=== PATIENT | female | born 1955 | race Caucasian/White ===

== ENCOUNTER 2017-08-18 10:30 | Outpatient (RCR) | payer OTHER ==
[2014-01-16 11:54] VITALS: BMI 23.3
[~2017-08-18 10:30] MED LIST: ADV500/50 INH; ALB0.5 INH; ALBU8.5H IH; ARMTHY90PT PO; ASPI-692 PO; BUTA1CAP4 PO; CETI-459 PO; CICPT NS; CYCL10TA29 PO; DIPH-740 PO; ESTR1PAT69 TD; FEXO-67 PO; FEXO180T74 PO; FLUT1DIS28 IH; HYDR-3087 PO; HYDR-4305 PO; IBUP800T37 PO; L-NO1TBD6 PO; LOR1 PO; MAGN400C PO; METO-1 PO; OMEP-125 PO; OMEP-218 PO; ONDA4TAB PO; ONDA4TAB97 PO; OXYC-865 PO; PANT20TA27 PO; PANT40SU3 PO; PIR10 PO; PRE1 PO; PRO25 PO; PROM-110 PO; RANI-324 PO; RIZA10TA PO; RIZA10TA20 PO; SUCR1TAB85 PO; THIA250T12 PO; THIA50TA10 PO; THYR120T10 PO; THYR97.55 PO; VALA500T66 PO; VERA120C9 PO; [UNRECOGNIZED DRUG - CODE] MC; [UNRECOGNIZED DRUG - CODE] PO; amoxicillin; biaxin; maxalt; norco
--- NOTE | 2017-08-18 17:41 | PT INITIAL EVALUATION ---
MEDICAL DIAGNOSIS: Right Shoulder Impingement TREATMENT DIAGNOSIS: Right Shoulder Impingement, Subscapularis Tendinopathy DATE OF ONSET: 01/16/17 SUBJECTIVE: oRcky is a pleasant 62 year-old female presenting to physical therapy with a history of right shoulder pain that has been present since Jan, 2017. Pt reports that pain got progressively worse until she was started on steroids for asthma which improved the shoulder pain. Following discontinuing steroids, pt received a steroid injection into the shoulder recently which has also reduced the pain. Currently pain is reported at a 1/10 with a mild ache throughout the R arm. Pt is also tender to palpation on the anterior aspect of the shoulder. Pt reports that throughout this process that she has been using her L arm more frequently, but still has increased pain when she needs to use her R arm for lifting or overhead reaching often in work related activities such as transferring patients. 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 ROM: B Shoulder ROM: IR: L T5, R T9. All other ROM full with R sided pain at end range flexion and painful arc in R side abduction. Strength: Shoulder MMT: L: 5/5 in all major motions, R: flexion: 5/5, abd: 4/5 with pain, Ext: 4+/5 with anterior shoulder pain, ER: 5/5, IR 3+/5 with pain. Palpation: Pt is tender to palpation on distal attachment of subscapularis tendon Special Tests: IR lift off test (-) with pain in R shoulder, Neer's (+) R, Horizontal Adduction (-), Empty can (+) slight pain. ASSESSMENT: Pt shows signs and symptoms consistent with R shoulder impingement with associated subscapularis tendinopathy. Physical therapy is indicated to correct the above listed deficits and return pt to full function with ADL's and work related activities. Short Term Goals In 2 weeks pt will have full AROM of B shoulders without onset of pain for improved function with ADL's and work related activities. In 4 weeks pt will improve functional strength of R shoulder to equal to that of the left for prevention of re-injury and improved function with ADL's. Patient's Goals Decrease pain and improve function. PLAN: Patient to be seen for Manual Therapy/STM/MET Strengthening/condition Ice/Heat Range of Motion Spinal Stabilization Ultrasound Stretching Iontophoresis Neuromuscular Re-ed Electrical Stim Posture/Body mechanics Biofeedback Home Exercise Program Mech./Manual Traction Therapeutic Activities 2x/Week for 4 Weeks PT recommendations for pt frequency are listed above. However, secondary to pt preference with family illness, as well as MD recommendation, pt is to receive only one treatment of PT at this time and follow up with PT if symptoms persist. It is my impression that pt would benefit from 4-6 weeks of therapy 2x/ week for assessment and adequate healing of the subscapularis tendon, neuromuscular reeducation with prolonged scapular-humeral dysfunction resulting in impingement, as well as to increase strength for work related activities for prevention of re-injury. If you have any questions, comments, or concerns about this report or plan, please contact me at . Thank you, Barbara Cisneros, PT, DPT, CLT TOREY
--- NOTE | 2017-09-13 08:45 | PT PLAN OF CARE ---
Physician: Steve Vial MD Patient is being seen: 2x/Week Therapist: Barbara Cisneros, PT, DPT, CLT Medical Diagnosis: Right Shoulder Impingement Treatment Diagnosis: Right Shoulder Impingement, Subscapularis Tendinopathy Date of Onset: 01/16/17 Date of Initial Evaluation: 08/18/17 Date patient was last seen: 08/18/17 Number of treatments: 1 Number of cancellations/No shows: 0 INTERVENTIONS: Manual Therapy/STM/MET Strengthening/condition Ice/Heat Range of Motion Spinal Stabilization Ultrasound Stretching Iontophoresis Neuromuscular Re-ed Electrical Stim Posture/Body mechanics Biofeedback Home Exercise Program Mech./Manual Traction Therapeutic Activities GOALS: In 2 weeks pt will have full AROM of B shoulders without onset of pain for improved function with ADL's and work related activities. In 4 weeks pt will improve functional strength of R shoulder to equal to that of the left for prevention of re-injury and improved function with ADL's. PATIENT'S GOAL: Decrease pain and improve function. Status of Patient's Goals: 0/2 MET Patient Compliance: Good Prognosis: Good Reasons for discharge from therapy: Rocky is to discharge from physical therapy at this time after being seen for only one visit secondary to patient preference and MD recommendation. Upon evaluation pt was given several exercises to correct her chronic impingement syndrome and prefers to progress with these exercises independently. It is my impression that pt would benefit from 4-6 weeks of therapy 2x/week for assessment and adequate healing of the subscapularis tendon, neuromuscular reeducation with prolonged scapular-humeral dysfunction resulting in impingement, as well as to increase strength for work related activities for prevention of re-injury. At the time of discharge pt has met 0/2 functional goals. Posture: Pt has slight elevated R shoulder. ROM: B Shoulder ROM: IR: L T5, R T9. All other ROM full with R sided pain at end range flexion and painful arc in R side abduction. Strength: Shoulder MMT: L: 5/5 in all major motions, R: flexion: 5/5, abd: 4/5 with pain, Ext: 4+/5 with anterior shoulder pain, ER: 5/5, IR 3+/5 with pain. Palpation: Pt is tender to palpation on distal attachment of subscapularis tendon Special Tests: IR lift off test (-) with pain in R shoulder, Neer's (+) R, Horizontal Adduction (-), Empty can (+) slight pain. If you have any questions, comments, or concerns about this report or plan, please contact me at . Thank you, Barbara Cisneros, PT, DPT, CLT JOSUED
== END 2017-08-18 18:00 | disposition home or self-care (01) ==
LOC: PT 10:30
PROVIDERS: ATTEND Orthopaedic Surgery
DX: M75.41 Impingement syndrome of right shoulder (principal); M75.81 Other shoulder lesions, right shoulder; M25.511 Pain in right shoulder
CPT/HCPCS: 97161

== ENCOUNTER → 2017-09-26 | Outpatient (CLI) | payer OTHER ==
[2014-01-16 11:54] VITALS: BMI 23.3
== END ==
LOC: LAB 08:48
PROVIDERS: ATTEND Family Medicine
DX: M79.1 Myalgia (principal); M25.50 Pain in unspecified joint
CPT/HCPCS: 87502

== ENCOUNTER → 2017-09-26 | Outpatient (CLI) | payer OTHER ==
[2014-01-16 11:54] VITALS: BMI 23.3
--- NOTE | 2017-09-26 17:04 | RADIOLOGY IMAGING REPORT ---
FACILITY: [facility] [place] PATIENT NAME: Rocky Pierce : 1955 MR: [id number] V: [id number] EXAM DATE: ORDERING PHYSICIAN: ARTURO ALONSO TECHNOLOGIST: Location: [facility] [place] Patient: Rocky Pierce : 1955 Visit/Account:[id number] Date of Sevice: 09/26/2017 SHOULDER RIGHT W/O CONTRAST HISTORY: Shoulder pain COMPARISON: None TECHNIQUE: Multiplanar/multisequence was obtained through the right shoulder without contrast. Contrast: None FINDINGS: Rotator cuff: Tendinosis with mild partial-thickness intrasubstance tearing of the distal supraspinat us tendon. Cystic change at the infraspinatus humeral engagement without discrete tear. Teres minor t endon is normal. Subscapularis tendon exhibits mild insertional tendinosis. No full-thickness tear of the rotator cuff. No tendinous retraction or muscular atrophy. Subacromial/subdeltoid fluid: Small amount Joint effusion: None significant Biceps tendon: Resides within the bicipital groove and is intact to the labrum without signal abnorma lity. Glenohumeral joint and labrum: No discrete labral tear or paralabral cyst. Articular cartilage is int act. AC joint : Mild proliferative changes. Minimal lateral acromial downsloping. Acromium is type II. Bone marrow: Mild cystic change both anteriorly and posteriorly within the humeral head Soft tissues: Normal Other findings: None significant IMPRESSION: 1. Tendinosis with mild partial-thickness intrasubstance tearing of the distal supraspinatus tendon. No full-thickness tear of the rotator cuff. 2. Mild cystic change anteriorly-posteriorly within the humeral head can be seen with internal imping ement. Report Dictated By: Bunny Brown MD at 09/26/2017 4:56 PM Report E-Signed By: Bunny Brown MD at 09/26/2017 5:00 PM WSN:[id number]
== END ==
LOC: MRI 06:57
PROVIDERS: ATTEND Orthopaedic Surgery
DX: S46.811A Strain of other muscles, fascia and tendons at shoulder and upper arm level, right arm, initial encounter (principal); M75.91 Shoulder lesion, unspecified, right shoulder

== ENCOUNTER → 2018-01-18 | Outpatient (CLI) | payer OTHER ==
[2014-01-16 11:54] VITALS: BMI 23.3
[~2018-01-18] MED LIST changes: -RANI-324 PO; +RANI-366 PO
--- NOTE | 2018-01-19 15:45 | RADIOLOGY IMAGING REPORT ---
FACILITY: [facility] PATIENT NAME: BACILIO DUBON : [id number] MR: [id number] V: [id number] EXAM DATE: ORDERING PHYSICIAN: MADI GARRISON TECHNOLOGIST: Kate Stephen PROCEDURE:BILATERAL DIGITAL SCREENING MAMMOGRAM WITH CAD ASSISTED INTERPRETATION & 3D TOMOSYNTHESIS COMPARISON:Prior mammograms dated 01/02/14, 07/25/12 INDICATIONS:SCREENING FINDINGS: A small amount of fibroglandular tissue is seen throughout the breasts. The parenchymal pattern has remained stable allowing for difference in mammographic technique & patient positioning. There is no evidence of malignant appearing mass, malignant appearing calcification or other secondary sign of malignancy in either breast. DIAGNOSTIC CATEGORY 1--NEGATIVE. RECOMMENDATIONS: ROUTINE MAMMOGRAM AND CLINICAL EVALUATION. IMPRESSION: BIRADS 1: Negative. No significant abnormality is seen. Dictated by: Janeen Gordon M.D. on 01/18/2018 at 14:58 Transcribed by: BLAKE on 01/19/2018 at 8:01 Approved by: Janeen Gordon M.D. on 01/19/2018 at 15:44 [facility]
== END ==
LOC: MAMO 01-11 01:40
PROVIDERS: ATTEND Family Medicine
DX: Z12.31 Encounter for screening mammogram for malignant neoplasm of breast (principal)
CPT/HCPCS: 77063; 77067

== ENCOUNTER 2018-07-14 22:26 | Emergency (ER) | payer OTHER ==
[2014-01-16 11:54] VITALS: BMI 23.3
[~2018-07-14 22:26] MED LIST changes: -HYDR-4305 PO; +HYDR-627 PO
[2018-07-14 22:35] VITALS: BP 132/75
[2018-07-14] MEDS ORDERED: RANI-366 PO (22:47)
[2018-07-14] MEDS ORDERED: AMIT-104 PO (22:47)
[2018-07-14] MEDS ORDERED: DIPH-740 PO (22:47)
[2018-07-14] MEDS ORDERED: PANT40SU3 PO (22:47)
--- NOTE | 2018-07-14 22:52 | ER Report ---
History and Physical Time Seen By MD: 22:49 Hx. of Stated Complaint: PATIENT STATES THAT SHE HAS 2 ROUNDS OF ANTIBIOTICS FOR UTI AND IT HAS NOT GOTTEN BETTER. LAST ROUND ENDED 3 DAYS AGO HPI/ROS CHIEF COMPLAINT: Dysuria and frequency HISTORY OF PRESENT ILLNESS: This is a 8-year-old female. She has had a urinary tract infection for a couple of weeks now. She was seen at urgent care, urinalysis showed changes consistent with urinary infection. She was on a week of Macrobid. Symptoms seemed to improve initially when first starting the antibiotic but then worsened again. No culture was done on the urinalysis, but on follow-up with urgent care based on recurrent symptoms, she was started on a week of cephalexin. Again started to improve with the beginning of this but now 3 days after completing the course seems to continue to have dysuria as well as frequency. Not getting much sleep because of this and she was wondering if she needed another antibiotic. His any fevers or chills. Pain that she is experiencing is low down in the suprapubic area and she is having frequency with small amounts. No history of sexually transmitted diseases and she does not believe she is at risk for these, and a monogamous relationship with her who is a truck despatcher. Bowels seem to be working well. Allergies: Coded Allergies: Sulfa (Sulfonamide Antibiotics) (Verified Allergy, Mild, POSSIBLE, 04/25/16) naproxen (Verified Adverse Reaction, Unknown, EXTREME BLOATING AND DIARRHEA, 04/25/16) Home Meds Active Scripts Phenazopyridine Hcl (PHENAZOPYRIDINE HCL) 200 Mg Tablet, 200 MG PO TID, #20 TAB 0 Refills Prov:TCIO ALMEIDA MD 07/14/18 Reported Medications Diphenhydramine Hcl (BENADRYL) 25 Mg Capsule, 25 MG PO Q6-8H, CAPSULE 07/14/18 Ranitidine Hcl (ZANTAC) 150 Mg Tablet, 150 MG PO BID, TAB 07/14/18 Amitriptyline Hcl (AMITRIPTYLINE HCL) 10 Mg Tablet, 5 MG PO QHS, #5 TAB 07/14/18 Pantoprazole Sodium (PROTONIX) 40 Mg Granprasanna.dr, 20 MG PO QDAY, PACK 07/14/18 Betaine Hcl (BETAINE HCL) 300 Mg Tablet, 300 MG PO TID 04/25/16 Aspirin/Acetaminophen/Caffeine (EXCEDRIN MIGRAINE CAPLET) 1 Each Tablet, 2 TAB PO QDAY 01/27/16 Albuterol Sulfate 90 Mcg/Act (PROAIR HFA 90 MCG/ACT) 8.5 Gm Hfa.aer.ad, 2 PUFF IH Q4-6H PRN for ALLERGY SYMPTOMS, INHALER 01/27/16 Cyclobenzaprine Hcl (CYCLOBENZAPRINE HCL) 10 Mg Tablet, 5 MG PO HS, #9 TAB 01/27/16 Thiamine Hcl (VITAMIN B-1) 250 Mg Tablet, 500 MG PO QDAY 01/27/16 Magnesium Oxide (MAGNESIUM) 400 Mg Capsule, 400 MG PO QDAY, CAPSULE 01/27/16 Thyroid,Pork (NATURE-THROID) 97.5 Mg Tablet, 113 MG PO QAM 01/27/16 Fluticasone/Salmeterol (ADVAIR 250-50 DISKUS) Unknown Strength Disk.w.dev, 1 EACH IH BID 12/29/15 Fexofenadine Hcl (SILVANO ALLERGY) 180 Mg Tablet, 180 MG PO QDAY 01/19/15 Butalb/Acetaminophen/Caffeine (FIORICET 50-300-40 MG CAPSULE) 1 Each Capsule, 1 EACH PO Q4H PRN for MIGRAINE, CAPSULE TAKE 1 CAPSULE BY MOUTH EVERY 4 HOURS NEEDED FOR PAIN 11/17/14 Reviewed Nurses Notes: Yes Hx Smoking: Yes Smoking Status: Never Smoker, Former Smoker Exposure to Second Hand Smoke?: No Hx Alcohol Use: No Constitutional Vital Sign - Last 24 Hours 07/14/18 22:35 Temp 97.8 Pulse 70 Resp 18 B/P (MAP) 132/75 Pulse Ox 94 O2 Delivery Room Air Physical Exam General Appearance: Alert, no distress Gastrointestinal: Abdomen is soft, some suprapubic discomfort. No CVA tenderness. DIFFERENTIAL DIAGNOSIS: After history and physical exam differential diagnosis was considered for patient with ongoing symptoms of dysuria and frequency Medical Decision Making Data Points Laboratory Hematology Test 07/14/18 22:34 Urine Color Yellow Urine Clarity Clear Urine pH 7.0 pH (4.8-9.5) Urine Specific [place] 1.013 Urine Protein Negative mg/dL (NEGATIVE) Urine Glucose (UA) Negative mg/dL (NEGATIVE) Urine Ketones Negative mg/dL (NEGATIVE) Urine Blood Negative (NEGATIVE) Urine Nitrite Negative (NEGATIVE) Urine Bilirubin Negative (NEGATIVE) Urine Urobilinogen Negative mg/dL (0.2-1.9) Urine Leukocyte Esterase Negative (NEGATIVE) Urine RBC None /HPF (0-2/HPF) Urine WBC None /HPF (0-5/HPF) Urine Squamous Epithelial Cells Moderate /LPF (</=FEW) Urine Bacteria Negative /HPF (NONE-FEW) Urine Mucus Few /HPF (NONE-FEW) Chemistry Test 07/14/18 22:34 Urine Color Yellow Urine Clarity Clear Urine pH 7.0 pH (4.8-9.5) Urine Specific [place] 1.013 Urine Protein Negative mg/dL (NEGATIVE) Urine Glucose (UA) Negative mg/dL (NEGATIVE) Urine Ketones Negative mg/dL (NEGATIVE) Urine Blood Negative (NEGATIVE) Urine Nitrite Negative (NEGATIVE) Urine Bilirubin Negative (NEGATIVE) Urine Urobilinogen Negative mg/dL (0.2-1.9) Urine Leukocyte Esterase Negative (NEGATIVE) Urine RBC None /HPF (0-2/HPF) Urine WBC None /HPF (0-5/HPF) Urine Squamous Epithelial Cells Moderate /LPF (</=FEW) Urine Bacteria Negative /HPF (NONE-FEW) Urine Mucus Few /HPF (NONE-FEW) Urinalysis Test 07/14/18 22:34 Urine Color Yellow Urine Clarity Clear Urine pH 7.0 pH (4.8-9.5) Urine Specific [place] 1.013 Urine Protein Negative mg/dL (NEGATIVE) Urine Glucose (UA) Negative mg/dL (NEGATIVE) Urine Ketones Negative mg/dL (NEGATIVE) Urine Blood Negative (NEGATIVE) Urine Nitrite Negative (NEGATIVE) Urine Bilirubin Negative (NEGATIVE) Urine Urobilinogen Negative mg/dL (0.2-1.9) Urine Leukocyte Esterase Negative (NEGATIVE) Urine RBC None /HPF (0-2/HPF) Urine WBC None /HPF (0-5/HPF) Urine Squamous Epithelial Cells Moderate /LPF (</=FEW) Urine Bacteria Negative /HPF (NONE-FEW) Urine Mucus Few /HPF (NONE-FEW) ED Course/Re-evaluation ED Course Urinalysis is negative at this time other than moderate squamous epithelial cells. We did send a chlamydia and gonorrhea as well as urine culture. Did give her some Pyridium to use. Recommended against using antibiotics at this point where there is no sign of clear infection. Did recommend trying some ibuprofen to help with possible inflammation in the bladder area as well as the Pyridium. Decision to Disposition Date: Jul 14, 2018 Decision to Disposition Time: 23:57 Depart Departure Latest Vital Signs Vital Signs Date Time Temp Pulse Resp B/P (MAP) Pulse Ox O2 Delivery O2 Flow Rate FiO2 07/14/18 22:35 97.8 70 18 132/75 94 Room Air Impression: Primary Impression: Dysuria Condition: Improved Disposition: HOME OR SELF-CARE Referrals: MADI GARRISON DO (PCP) New Scripts Phenazopyridine Hcl (PHENAZOPYRIDINE HCL) 200 Mg Tablet 200 MG PO TID, #20 TAB 0 Refills Prov: TICO ALMEIDA MD 07/14/18 Patient Instructions: Dysuria (ED) Additional Instructions: Take Pyridium 200mg every 8 hours as needed for pain with urination. Increase fluid intake. Consider taking Ibuprofen 200mg tablets, 3-4 every 8 hours for the next couple of days TICO ALMEIDA MD Jul 14, 2018 22:52
[2018-07-14] MEDS ORDERED: PHEN200T32 PO (23:58)
[2018-07-15] MEDS ORDERED: PHENAZOPYRIDINE 200 MG TAB TH 2 TAB/BOTTLE PO ONE
== END 2018-07-15 00:09 | disposition home or self-care (01) ==
LOC: ER 23:06
DX: R30.0 Dysuria (principal)
CPT/HCPCS: 81001; 87088; 87491; 87591; 99283

== ENCOUNTER → 2018-07-16 | Outpatient (CLI) | payer OTHER ==
[2014-01-16 11:54] VITALS: BMI 23.3
[~2018-07-16] MED LIST changes: +AMIT-104 PO; +PHEN200T32 PO
== END ==
LOC: LAB 17:38
PROVIDERS: ATTEND Nurse Practitioner Family
DX: R30.0 Dysuria (principal)
CPT/HCPCS: 81001

== ENCOUNTER 2018-10-21 17:56 | Emergency (ER) | payer OTHER ==
[2014-01-16 11:54] VITALS: BMI 23.3
[~2018-10-21 17:56] MED LIST changes: +THIA50TA PO; -THIA50TA10 PO
--- NOTE | 2018-10-21 18:11 | ER Report ---
History and Physical Time Seen By MD: 18:11 HPI/ROS CHIEF COMPLAINT: shortness of breath. HISTORY OF PRESENT ILLNESS: This is a 63 year old female. She is short of breath. Recently diagnosed with influenza. Albuterol inhaler not working as well as she would like with decreased peak flows at home. Concern about pneumonia or other problem. No pain at this time. No nausea or vomiting. Allergies: Coded Allergies: Sulfa (Sulfonamide Antibiotics) (Verified Allergy, Mild, POSSIBLE, 04/25/16) naproxen (Verified Adverse Reaction, Unknown, EXTREME BLOATING AND DIARRHEA, 04/25/16) Home Meds Active Scripts Prednisone (PREDNISONE) 20 Mg Tablet, 20 MG PO DIRECTED, #15 TAB 0 Refills Take 2 tablets once a day for 3 days, then take 1 1/2 tablets once a day for 3 days, then take 1 tablet once a day for 3 days, Then take 1/2 tablet once a day for 3 days, then stop. Prov:TICO ALMEIDA MD 10/21/18 Prednisone (PREDNISONE) 20 Mg Tablet, 60 MG PO QDAY, #9 TAB 0 Refills Prov:TICO ALMEIDA MD 10/21/18 Ipratropium/Albuterol Sulfate (IPRAT-ALBUT 0.5-3(2.5) MG/3 ML) 3 Ml Ampul.neb, 3 ML IH Q4H PRN for SHORTNESS OF BREATH, #1 BOX 0 Refills Prov:TICO ALMEIDA MD 10/21/18 Reported Medications Ranitidine Hcl (ZANTAC) 150 Mg Tablet, 150 MG PO BID, TAB 07/14/18 Amitriptyline Hcl (AMITRIPTYLINE HCL) 10 Mg Tablet, 5 MG PO QHS, #5 TAB 07/14/18 Aspirin/Acetaminophen/Caffeine (EXCEDRIN MIGRAINE CAPLET) 1 Each Tablet, 2 TAB PO QDAY 01/27/16 Albuterol Sulfate 90 Mcg/Act (PROAIR HFA 90 MCG/ACT) 8.5 Gm Hfa.aer.ad, 2 PUFF IH Q4-6H PRN for ALLERGY SYMPTOMS, INHALER 01/27/16 Cyclobenzaprine Hcl (CYCLOBENZAPRINE HCL) 10 Mg Tablet, 5 MG PO HS, #9 TAB 01/27/16 Magnesium Oxide (MAGNESIUM) 400 Mg Capsule, 400 MG PO QDAY, CAPSULE 01/27/16 Thyroid,Pork (NATURE-THROID) 97.5 Mg Tablet, 113 MG PO QAM 01/27/16 Discontinued Reported Medications Diphenhydramine Hcl (BENADRYL) 25 Mg Capsule, 25 MG PO Q6-8H, CAPSULE 07/14/18 Pantoprazole Sodium (PROTONIX) 40 Mg Granpkt.dr, 20 MG PO QDAY, PACK 07/14/18 Betaine Hcl (BETAINE HCL) 300 Mg Tablet, 300 MG PO TID 04/25/16 Thiamine Hcl (VITAMIN B-1) 250 Mg Tablet, 500 MG PO QDAY 01/27/16 Fluticasone/Salmeterol (ADVAIR 250-50 DISKUS) Unknown Strength Disk.w.dev, 1 EACH IH BID 12/29/15 Fexofenadine Hcl (SILVANO ALLERGY) 180 Mg Tablet, 180 MG PO QDAY 01/19/15 Butalb/Acetaminophen/Caffeine (FIORICET 50-300-40 MG CAPSULE) 1 Each Capsule, 1 EACH PO Q4H PRN for MIGRAINE, CAPSULE TAKE 1 CAPSULE BY MOUTH EVERY 4 HOURS NEEDED FOR PAIN 11/17/14 Discontinued Scripts Phenazopyridine Hcl (PHENAZOPYRIDINE HCL) 200 Mg Tablet, 200 MG PO TID, #20 TAB 0 Refills Prov:TICO ALMEIDA MD 07/14/18 Reviewed Nurses Notes: Yes Hx Smoking: Yes Smoking Status: Never Smoker, Former Smoker Exposure to Second Hand Smoke?: No Hx Alcohol Use: No Constitutional Vital Sign - Last 24 Hours 10/21/18 10/21/18 10/21/18 10/21/18 18:01 18:08 18:15 18:30 Temp 98.0 Pulse 103 97 86 Resp 18 B/P (MAP) 139/78 (98) 139/78 115/67 (83) Pulse Ox 94 91 91 O2 Delivery Room Air 10/21/18 10/21/18 10/21/18 10/21/18 18:45 18:52 18:52 19:00 Pulse 91 97 97 Resp 16 B/P (MAP) 131/64 (86) Pulse Ox 90 97 90 O2 Delivery Room Air 10/21/18 10/21/18 19:30 19:45 Pulse 94 92 B/P (MAP) 129/80 (96) Pulse Ox 87 92 Physical Exam General Appearance: Alert, anxious. vital signs are stable. Eyes: Pupils equal and round no injection. ENT: Normal oral mucosa. Moist mucous membranes. Neck: Neck is supple and non tender. Respiratory: Lungs with some mild expiratory wheezing. Cardiac: regular rate and rhythm DIFFERENTIAL DIAGNOSIS: After history and physical exam differential diagnosis was considered for shortness of breath including but not limited to pulmonary infectious process, asthma exacerbation. Medical Decision Making EKG/Imaging Imaging 2 VIEWS CHEST INDICATION: Cough and shortness of breath. COMPARISON: 01/09/2014. FINDINGS: Cardiomediastinal silhouette and pulmonary vessels within normal limits. There is no focal infiltrate or lobar consolidation. There is no pneumothorax or pleural effusion. No nodule. Upper abdomen is unremarkable. No acute bony abnormality. IMPRESSION: 1. No acute cardiopulmonary process. Report Dictated By: Robi Rice at 10/21/2018 7:55 PM ED Course/Re-evaluation ED Course Improved with DuoNeb treatments. Chest x-ray is negative. Home with Duoneb vials. Prednisone added in place of the Medrol. Ativan added to help with some anxiety. Decision to Disposition Date: Oct 21, 2018 Decision to Disposition Time: 19:50 Depart Departure Latest Vital Signs Vital Signs Date Time Temp Pulse Resp B/P (MAP) Pulse Ox O2 Delivery O2 Flow Rate FiO2 10/21/18 19:45 92 92 10/21/18 19:30 129/80 (96) 10/21/18 18:52 Room Air 10/21/18 18:52 16 10/21/18 18:08 98.0 Impression: Primary Impression: Viral upper respiratory infection Additional Impression: Reactive airway disease Condition: Improved Disposition: HOME OR SELF-CARE Referrals: MADI GARRISON DO (PCP) New Scripts Prednisone (PREDNISONE) 20 Mg Tablet 20 MG PO DIRECTED, #15 TAB 0 Refills Take 2 tablets once a day for 3 days, then take 1 1/2 tablets once a day for 3 days, then take 1 tablet once a day for 3 days, Then take 1/2 tablet once a day for 3 days, then stop. Prov: TICO ALMEIDA MD 10/21/18 Prednisone (PREDNISONE) 20 Mg Tablet 60 MG PO QDAY, #9 TAB 0 Refills Prov: TICO ALMEIDA MD 10/21/18 Ipratropium/Albuterol Sulfate (IPRAT-ALBUT 0.5-3(2.5) MG/3 ML) 3 Ml Ampul.neb 3 ML IH Q4H PRN for SHORTNESS OF BREATH, #1 BOX 0 Refills Prov: TICO ALMEIDA MD 10/21/18 Patient Instructions: Reactive Airways Disease (ED), Upper Respiratory Infection (ED) Additional Instructions: Your xray and vitals were normal today. Stop the Medrol dose-pack Start Prednisone 20mg tablets, take 3 tablets once a day for 3 days and stop. If still having breathing problems, I have provided a second prescription for a tapering dose to take over the next 12 days. Use the DuoNeb nebulizers every 4 hours as needed. You can use the Albuterol inhaler between these doses. Ativan 0.5mg tablets, 1/2 tablet every 4 hours as needed for anxiety. Problem Qualifiers Additional Impression: Reactive airway disease Asthma severity: mild Asthma persistence: intermittent Asthma complication type: with acute exacerbation Qualified Codes: J45.21 - Mild intermittent asthma with (acute) exacerbation TICO ALMEIDA MD Oct 21, 2018 18:11
[2018-10-21] MEDS ORDERED: ALBUTEROL/IPRATROPIUM 3 ML NEB NEB ONE ×2 (18:25→19:50)
[2018-10-21 19:30] VITALS: BP 129/80
[2018-10-21] MEDS ORDERED: predniSONE 20 MG TAB PO ONE (19:50)
[2018-10-21] MEDS ORDERED: LORazepam 0.5 MG TAB PO ONE (19:50)
[2018-10-21] MEDS ORDERED: PRED20TA6 PO ×2 (19:53)
[2018-10-21] MEDS ORDERED: IPRA3AMP10 IH (19:53)
--- NOTE | 2018-10-21 20:01 | RADIOLOGY IMAGING REPORT ---
FACILITY: [facility] PATIENT NAME: Rocky Pierce : 1955 MR: [id number] V: [id number] EXAM DATE: ORDERING PHYSICIAN: TICO ALMEIDA TECHNOLOGIST: Location: [facility] [place] Patient: Rocky Pierce : 1955 Visit/Account:[id number] Date of Sevice: 10/21/2018 2 VIEWS CHEST INDICATION: Cough and shortness of breath. COMPARISON: 01/09/2014. FINDINGS: Cardiomediastinal silhouette and pulmonary vessels within normal limits. There is no focal infiltrate or lobar consolidation. There is no pneumothorax or pleural effusion. No nodule. Upper abdomen is unremarkable. No acute bony abnormality. IMPRESSION: 1. No acute cardiopulmonary process. Report Dictated By: Robi Rice at 10/21/2018 7:55 PM Report E-Signed By: Robi Rice at 10/21/2018 7:57 PM WSN:[id number]
[2018-10-21] MEDS ORDERED: LORazepam 0.5 MG TAB ONE (20:04)
== END 2018-10-21 20:05 | disposition home or self-care (01) ==
LOC: ER 18:19
DX: J45.21 Mild intermittent asthma with (acute) exacerbation (principal); J06.9 Acute upper respiratory infection, unspecified
CPT/HCPCS: 71046; 94640; 99283; J7512; J7620

== ENCOUNTER → 2018-11-09 | Outpatient (CLI) | payer OTHER ==
[2014-01-16 11:54] VITALS: BMI 23.3
[~2018-11-09] MED LIST changes: +IPRA3AMP10 IH; +PRED20TA6 PO
--- NOTE | 2018-11-09 17:16 | RADIOLOGY IMAGING REPORT ---
FACILITY: PATIENT NAME: Rocky Pierce : 1955 MR: [id number] V: [id number] EXAM DATE: ORDERING PHYSICIAN: KAYLA CHATTERJEE TECHNOLOGIST: Location: [facility] Patient: Rocky Pierce : 1955 Visit/Account:[id number] Date of Sevice: 11/09/2018 Study: CT scan of the paranasal sinuses Indication:Sinusitis Comparison study: September 01, 2016 Technique: Multiple axial images were obtained through the paranasal sinuses. Coronal and sagittal 2- dimensional reconstructions were made from the original data set. One of the following dose optimization techniques was utilized in the performance of this exam: Autom ated exposure control; adjustment of the mA and/or kV according to the patient's size; or use of an i terative reconstruction technique. Specific details can be referenced in the facility's radiology C T exam operational policy. Findings: Maxillary sinuses: There is near total opacification of the right maxillary sinus. There is an air-f luid level within the right maxillary sinus. This is consistent with acute sinusitis. This is a new finding. The left maxillary sinus is unremarkable. Ethmoid air cells:Unremarkable Sphenoid sinus: There is mucosal thickening within the sphenoid sinus. Frontal sinus:Unremarkable Ostiomeatal units: The left ostiomeatal unit is widely patent. The right ostiomeatal unit is opacifi ed with soft tissue density material. Nasal septum:Midline IMPRESSION: Near total opacification of the right maxillary sinus with an air-fluid level. This is c onsistent with acute sinusitis. The right ostiomeatal unit is opacified with soft tissue density material. Report Dictated By: Geovanny Lau at 11/09/2018 5:09 PM Report E-Signed By: Geovanny Lau at 11/09/2018 5:12 PM WSN:[id number]
== END ==
LOC: CT 07:14
PROVIDERS: ATTEND Physician Assistant
DX: J01.00 Acute maxillary sinusitis, unspecified (principal); G50.1 Atypical facial pain
CPT/HCPCS: 70486

== ENCOUNTER 2019-01-11 02:08 | Day surgery (SDC) | payer OTHER ==
[2014-01-16 11:54] VITALS: Ht 170.2 cm; Wt 66.2 kg
[~2019-01-11] VITALS: Ht 170.2 cm; Wt 66.2 kg
[~2019-01-11 02:08] MED LIST changes: +ASHWAGANDHA PO; +BUTA1TAB14 PO; +CALC600T63 PO; +FLUT16SP19 NS; +HYDR-653 PO; +MONT10TA PO; +OXYGENHOME INH; +THYR113. PO; +[UNRECOGNIZED DRUG - CODE] GT
[2019-01-11 11:51] VITALS: BP 116/77
[2019-01-11] MEDS ORDERED: LIDOCAINE/SOD BICARB 8.4% SYR ID ONE (12:30)
[2019-01-11] MEDS ORDERED: ceFAZolin(*) 2GM/D5W 50ML 50 ML IVPB ONE (12:30)
[2019-01-11] MEDS ORDERED: NORMOSOL R SOLN(*) 1000 ML BAG 1,000 ML IV PRN (12:30)
[2019-01-11] MEDS ORDERED: OXYMETAZOLINE SPRAY 15 ML BTL ONE ×2 (13:01→13:45)
[2019-01-11] MEDS ORDERED: LIDO/EPI 1% MDV 1:100,000 20ML INFIL ONE (13:01)
[2019-01-11] MEDS ORDERED: BACITRACIN OINT 15 GM TUBE TP ONE (13:01)
[2019-01-11] MEDS ORDERED: ONDANSETRON 4 MG/2 ML VIAL ONE (13:02)
[2019-01-11] MEDS ORDERED: PROPOFOL EMUL(*) 10MG/ML 20 ML 40 ML ONE (13:02)
[2019-01-11] MEDS ORDERED: NS(*) 0.9% 250 ML BAG 250 ML ONE (13:02)
[2019-01-11] MEDS ORDERED: DEXAMETHASONE SOD PHOS 10MG/ML ONE (13:02)
[2019-01-11] MEDS: MIDAZOLAM 2 MG/2 ML VIAL IVP PRN ×2 (13:15→13:23)
[2019-01-11] MEDS ORDERED: LABETALOL HCL 25 MG/5 ML SYRINGE ONE (13:38)
--- NOTE | 2019-01-11 14:50 | Short(Outpt) Discharge Summary ---
Discharge Summary Reason for Hosp/Final Diag: (1) Colon cancer screening Status: Chronic Hospital Course & Plan: Colonoscopy completed without problems, normal. Colonoscopy in 10 years. Departure Discharge to: Home, Self Care Discharge Instructions Home Meds Reported Medications Ondansetron Hcl (ZOFRAN) 4 Mg Tablet, 4 MG PO Q12H PRN for NAUSEA, TAB 01/07/19 Butalb/Acetaminophen/Caff 50-325-40 Mg (FIORICET 50-325-40) 1 Each Tablet, 1-2 TAB PO Q4H PRN for MIGRAINE, #30 TAB 01/07/19 Thyroid,Pork (NATURE-THROID) 113.75 Mg Tablet, 113.75 MG PO DAILY TAKES THIS DOSE FOR REMAINING 2 DAYS. 01/04/19 Thyroid,Pork (NATURE-THROID) 97.5 Mg Tablet, 97.5 MG PO DAILY TAKES THIS DOSE FOR 5 DAYS. 01/04/19 [Leon] No Conflict Check, 1300 MG PO HS HERBAL NIGHTTIME SLEEP AID. 01/04/19 Ranitidine Hcl (ZANTAC) 150 Mg Tablet, 300 MG PO HS, TAB 01/04/19 Calcium Carbonate (CALCIUM) 600 Mg Tablet, 0.5 TAB PO HS 01/04/19 Hydrocodone Bit/Acetaminophen (NORCO 5-325 TABLET) 1 Each Tablet, 0.5 EACH PO DAILY PRN for MIGRAINE, TAB 12/21/18 Montelukast Sodium (SINGULAIR) 10 Mg Tablet, 1 TAB PO HS, TAB 12/21/18 Oxygen (OXYGEN) Inha, 2 L INH HS, L O2 AT 2L/MIN PER NC AT HS 12/21/18 Fluticasone/Salmeterol (ADVAIR 250-50 DISKUS) 1 Each Disk.w.dev, 1 EACH IH BID 12/21/18 Fluticasone Prop 50 Mcg Ns (FLONASE 50 MCG NS) 16 Gm Watson.susp, 2 SPRAYS NS BID, BOT 12/21/18 Amitriptyline Hcl (AMITRIPTYLINE HCL) 10 Mg Tablet, 5 MG PO QHS, #5 TAB 07/14/18 Aspirin/Acetaminophen/Caffeine (EXCEDRIN MIGRAINE CAPLET) 1 Each Tablet, 2 TAB PO QDAY 01/27/16 Magnesium Oxide (MAGNESIUM) 400 Mg Capsule, 400 MG PO HS, CAPSULE 5/25/16 Discontinued Reported Medications Al Hydrox/Mg Carbonate (GAVISCON LIQUID) Unknown Strength Susp, GT 12/21/18 Cyclobenzaprine Hcl (CYCLOBENZAPRINE HCL) 10 Mg Tablet, 5 MG PO HS, #9 TAB 01/27/16 Thyroid,Pork (NATURE-THROID) 97.5 Mg Tablet, 113 MG PO QAM 01/27/16 Diet: Regular Activity: As Tolerated Special Instructions: Dr. Dickson: DO NOT LIFT OVER 15 POUNDS. Avoid NSAIDS (ibuprofen, motrin, naproxen, naprosyn, aleve, advil, excedrin migraine, and all other medications that contain NSAIDS) until you see Dr. Dickson at your follow up appointment. Dr. Ferrer: Your colonoscopy was completed without problems and your prep was excellent (Good Job!!). I didn't find any polyps, cancer, or other problems. You do have diverticuli throughout your colon but no inflammation. I recommend that you eat a serving of fruit with breakfast, a serving each of fruit and vegetables with lunch and 2 servings of vegetables with dinner and you could consider adding a fiber supplement such as metamucil or citrucel to your daily regimen. I recommend that you have another colonoscopy in 10 years for screening. JOSE FERRER MD January 11, 2019 14:50
[2019-01-11] MEDS ORDERED: fentaNYL CITR 100 MCG/2 ML AMP ONE ×2 (14:52→15:25)
[2019-01-11] MEDS ORDERED: CEFU500T10 PO (15:04)
[2019-01-11] MEDS ORDERED: MORPHINE 2 MG/ML SYR ONE (15:37)
[2019-01-11 16:00] VITALS: BP 101/73
[2019-01-11 16:30] VITALS: BP 105/73
[2019-01-11 16:43] VITALS: BP 111/77
[2019-01-11 16:44] VITALS: BP 123/78
--- NOTE | 2019-01-11 19:09 | OPERATIVE REPORT 1 ---
EVENT DATE: January 11, 2019 SURGEON: Yovany Dickson MD ANESTHESIOLOGIST: Everton Street MD ANESTHESIA: LMA. PROCEDURES PERFORMED Bilateral maxillary antrostomies. PREOPERATIVE DIAGNOSIS Chronic bilateral maxillary sinusitis. POSTOPERATIVE DIAGNOSIS Chronic bilateral maxillary sinusitis. INDICATIONS Please refer to the preoperative note. DESCRIPTION OF PROCEDURE The patient was positively identified in the preoperative area. She was there alone. Risks again explained included, but were not limited to bleeding, infection, injury to the orbit, vision changes, injury to the skull base, cerebrospinal fluid leak, and those associated with anesthesia. She acknowledged understanding of those risks. I again reviewed the patient's preoperative CT of the sinuses. This is notable for opacification of the right maxillary sinus and minimal mucosal thickening of the left maxillary sinus. The patient was then brought back to the operative suite, placed supine on the operative table, and anesthesia was administered. Once asleep, patient was positioned and prepped and draped in the usual sterile fashion. Both nasal cavities were initially decongested with cottonoids containing Afrin solution. I began on the right side. The cottonoids were removed, and nasal endoscopy was performed. Approximately 0.5 mL of 1% lidocaine with epinephrine was infiltrated into the lateral nasal wall. An uncinectomy was performed. The natural maxillary ostium was identified. This was widened with back-biting forceps and the microdebrider blade. I then proceeded with the contralateral side in a similar fashion. The cottonoids were removed, and 0.5 mL of 1% lidocaine with epinephrine was infiltrated in the lateral nasal wall. An uncinectomy was performed. The natural maxillary ostium was identified. This was widened with back-biting forceps and microdebrider blade. For hemostasis, FloSeal was placed in the bilateral ostiomeatal complexes. The patient was then turned to Dr. Melgar for colonoscopy. Estimated blood loss 10 mL. No complications. TOREY
[2019-01-12] MEDS ORDERED: OXYC-865 PO (09:52)
== END 2019-01-11 16:00 | disposition home or self-care (01) ==
LOC: OR 02:08
PROVIDERS: ATTEND Otolaryngology
DX: Z12.11 Encounter for screening for malignant neoplasm of colon (principal); K57.30 Diverticulosis of large intestine without perforation or abscess without bleeding; J32.0 Chronic maxillary sinusitis
CPT/HCPCS: 00812; 31020; 45378; J1100; J2250; J2270; J2405; J2704; J3010; J7050; J0690

== ENCOUNTER → 2019-02-08 | Outpatient (CLI) | payer OTHER ==
[2014-01-16 11:54] VITALS: BMI 23.3
[~2019-02-08] MED LIST changes: +CEFU500T10 PO; -OMEP-125 PO; +OMEP-126 PO; -RANI-366 PO; +RANI-54 PO; +THIA250T PO; -THIA250T12 PO
== END ==
LOC: LAB 09:43
PROVIDERS: ATTEND Otolaryngology
DX: J30.9 Allergic rhinitis, unspecified (principal)
CPT/HCPCS: 36415; 86003

== ENCOUNTER → 2019-03-08 | Outpatient (CLI) | payer OTHER ==
[2014-01-16 11:54] VITALS: BMI 23.3
--- NOTE | 2019-03-08 15:45 | RADIOLOGY IMAGING REPORT ---
FACILITY: [facility] PATIENT NAME: BACILIO DUBON : [id number] MR: [id number] V: [id number] EXAM DATE: [id number] ORDERING PHYSICIAN: MADI GARRISON TECHNOLOGIST: Haylee East PROCEDURE: BILATERAL DIGITAL SCREENING MAMMOGRAM WITH CAD ASSISTED INTERPRETATION & 3D TOMOSYNTHESIS. REASON FOR STUDY: Screening. FAMILY HISTORY OF BREAST CANCER: None. BREAST PROCEDURES/TREATMENTS: None. COMPARISON: 01/18/18, 01/02/14, 07/25/12. VIEWS OBTAINED: Bilateral 2D & 3D full field CC & MLO projections. BREAST DENSITY: There are scattered areas of fibroglandular density throughout the breasts. MAMMOGRAM FINDINGS: The parenchymal pattern has remained stable allowing for difference in mammographic technique & patient positioning. IMPRESSION: BIRADS 1: Negative. DIAGNOSTIC CATEGORY 1--NEGATIVE. RECOMMENDATIONS: ROUTINE MAMMOGRAM AND CLINICAL EVALUATION. Dictated by: Janeen Gordon M.D. on 03/08/2019 at 9:52 Transcribed by: FIX on 03/08/2019 at 11:05 Approved by: Janeen Gordon M.D. on 03/08/2019 at 15:42 [facility]
== END ==
LOC: MAMO 00:45
PROVIDERS: ATTEND Family Medicine
DX: Z12.31 Encounter for screening mammogram for malignant neoplasm of breast (principal)
CPT/HCPCS: 77063; 77067

== ENCOUNTER 2019-03-29 19:46 | Emergency (ER) | payer OTHER ==
[2014-01-16 11:54] VITALS: Wt 68.0 kg
--- NOTE | 2019-03-29 19:50 | ER Report ---
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 She noted. They were cutting hay. She notes that her GERD has been acting up. She been having increasing shortness of breath for mostly today. She notes a cough this morning a productive green sputum. She's been using her inhalers to excess without improvement of her airway. She also started part of a Medrol Dosepak and took 8 mg of Medrol. She is on proton aches 80 mg by mouth twice a day for control of her GERD. Patient has 6-7 word dyspnea. She notes some chest tightness. REVIEW OF SYSTEMS: Respiratory: As above Cardiovascular: As above Gastrointestinal: [No vomiting, no abdominal pain.] Musculoskeletal: [No back pain.] Allergies: Coded Allergies: Sulfa (Sulfonamide Antibiotics) (Verified Allergy, Severe, UNKNOWN, MOM TOLD HER., 01/04/19) naproxen (Verified Adverse Reaction, Unknown, EXTREME BLOATING AND DIARRHEA, 01/04/19) Home Meds Active Scripts Oxycodone Hcl/Acetaminophen (PERCOCET 5-325 MG TABLET) 1 Each Tablet, 1 EACH PO Q6H PRN for PAIN for 3 Days, #8 TAB Prov:KEVAN CAMACHO JR, MD 01/12/19 Reported Medications Pantoprazole Sodium (PANTOPRAZOLE SODIUM) 40 Mg Tablet.dr, 40 MG PO BID, TAB.SR 03/29/19 Cefuroxime Axetil (CEFUROXIME) 500 Mg Tablet, 500 MG PO BID for 7 Days, #14 TAB 01/11/19 Ondansetron Hcl (ZOFRAN) 4 Mg Tablet, 4 MG PO Q12H PRN for NAUSEA, TAB 01/07/19 Butalb/Acetaminophen/Caff 50-325-40 Mg (FIORICET 50-325-40) 1 Each Tablet, 1-2 TAB PO Q4H PRN for MIGRAINE, #30 TAB 01/07/19 Thyroid,Pork (NATURE-THROID) 113.75 Mg Tablet, 113.75 MG PO DAILY TAKES THIS DOSE FOR REMAINING 2 DAYS. 01/04/19 Thyroid,Pork (NATURE-THROID) 97.5 Mg Tablet, 97.5 MG PO DAILY TAKES THIS DOSE FOR 5 DAYS. 01/04/19 [Prettygandha] No Conflict Check, 1300 MG PO HS HERBAL NIGHTTIME SLEEP AID. 01/04/19 Ranitidine Hcl (ZANTAC) 150 Mg Tablet, 300 MG PO HS, TAB 01/04/19 Calcium Carbonate (CALCIUM) 600 Mg Tablet, 0.5 TAB PO HS 01/04/19 Hydrocodone Bit/Acetaminophen (NORCO 5-325 TABLET) 1 Each Tablet, 0.5 EACH PO DAILY PRN for MIGRAINE, TAB 12/21/18 Montelukast Sodium (SINGULAIR) 10 Mg Tablet, 1 TAB PO HS, TAB 12/21/18 Oxygen (OXYGEN) Inha, 2 L INH HS, L O2 AT 2L/MIN PER NC AT HS 12/21/18 Fluticasone/Salmeterol (ADVAIR 250-50 DISKUS) 1 Each Disk.w.dev, 1 EACH IH BID 12/21/18 Fluticasone Prop 50 Mcg Ns (FLONASE 50 MCG NS) 16 Gm [place].susp, 2 SPRAYS NS BID, BOT 12/21/18 Amitriptyline Hcl (AMITRIPTYLINE HCL) 10 Mg Tablet, 5 MG PO QHS, #5 TAB 07/14/18 Aspirin/Acetaminophen/Caffeine (EXCEDRIN MIGRAINE CAPLET) 1 Each Tablet, 2 TAB PO QDAY 01/27/16 Magnesium Oxide (MAGNESIUM) 400 Mg Capsule, 400 MG PO HS, CAPSULE 01/27/16 Past Medical/Surgical History Past Medical History Neurologic: Reports hx of: migraine Respiratory: Reports hx of: asthma Gastrointestinal: Reports hx of: GERD other GI history (stomach ulcers undefined) Endocrine: Reports hx of: hypothyroidism thyroid nodule Past Surgical History Gynecologic: Reports hx of: hysterectomy (01/15/2014) tubal ligation (01/26/1998) Family History Family History: Reviewed Nurses Notes: Yes Old Medical Records Reviewed: Yes Hx Smoking: No Smoking Status: Never Smoker Exposure to Second Hand Smoke?: No Hx Alcohol Use: No Constitutional Vital Sign - Last 24 Hours 03/29/19 03/29/19 03/29/19 03/29/19 19:48 19:51 20:09 20:09 Temp 98.0 Pulse 102 100 Resp 18 18 B/P (MAP) 144/82 (102) 144/82 Pulse Ox 94 94 O2 Delivery Room Air Room Air 7/2603/29/19 03/29/19 03/29/19 20:16 20:19 20:34 20:46 Pulse 106 103 99 Resp 15 18 14 B/P (MAP) 137/86 (103) Pulse Ox 98 92 03/29/19 03/29/19 03/29/19 03/29/19 21:00 21:05 21:30 21:35 Pulse 95 95 Resp 20 19 B/P (MAP) 126/97 (107) 124/77 (93) Pulse Ox 91 90 03/29/19 03/29/19 03/29/19 21:52 22:00 22:05 Pulse 86 Resp 20 B/P (MAP) 127/84 (98) Pulse Ox 95 O2 Flow Rate 2.0 Physical Exam Vital signs stable, afebrile, pulse ox normal General Appearance: The patient is alert, has no immediate need for airway protection and no current signs of toxicity. Slightly pale appearing, skin warm and dry, mild respiratory distress, HEENT: Pupils equal and round no injection. Oropharynx with mild erythema, no exudate Respiratory: Chest is non tender, lungs are clear to auscultation. Trace expiratory wheezing bilaterally Cardiac: regular rate and rhythm, no murmur Gastrointestinal: Abdomen is soft and non tender, no masses, bowel sounds normal. Musculoskeletal: Neck: Neck is supple and non tender. Extremities have full range of motion and are non tender. No edema, no calf tenderness Skin: No rashes or lesions. DIFFERENTIAL DIAGNOSIS: After history and physical exam differential diagnosis was considered for shortness of breath including but not limited to pulmonary infectious process, COPD, asthma, pulmonary embolus and congestive heart failure. Medical Decision Making Data Points Result Diagram: 03/29/19199903/29/191999 Laboratory Hematology Test 03/29/19 20:00 White Blood Count 5.7 k/uL (4.5-11.0) Red Blood Count 4.97 M/uL (4.17-5.56) Hemoglobin 14.5 g/dL (12.0-16.0) Hematocrit 42.6 % (34.0-47.0) Mean Corpuscular Volume 85.7 fL (80.0-96.0) Mean Corpuscular Hemoglobin 29.1 pg (26.0-33.0) Mean Corpuscular Hemoglobin Concent 33.9 g/dL (32.0-36.0) Red Cell Distribution Width 12.3 % (11.5-14.5) Platelet Count 328 K/uL (150-450) Mean Platelet Volume 8.8 fL (7.2-11.1) Neutrophils (%) (Auto) 76.4 % (39.4-72.5) H Lymphocytes (%) (Auto) 15.6 % (17.6-49.6) L Monocytes (%) (Auto) 7.4 % (4.1-12.4) Eosinophils (%) (Auto) 0.2 % (0.4-6.7) L Basophils (%) (Auto) 0.4 % (0.3-1.4) Nucleated RBC Relative Count (auto) 0.1 /100WBC Neutrophils # (Auto) 4.3 K/uL (2.0-7.4) Lymphocytes # (Auto) 0.9 K/uL (1.3-3.6) L Monocytes # (Auto) 0.4 K/uL (0.3-1.0) Eosinophils # (Auto) 0.0 K/uL (0.0-0.5) Basophils # (Auto) 0.0 K/uL (0.0-0.1) Nucleated RBC Absolute Count (auto) 0.01 K/uL Chemistry Test 03/29/19 20:00 Sodium Level 140 mmol/L (137-145) Potassium Level 3.6 mmol/L (3.5-5.0) Chloride Level 105 mmol/L (98-107) Carbon Dioxide Level 23 mmol/L (22-31) Blood Urea Nitrogen 21 mg/dl (7-18) Creatinine 0.70 mg/dl (0.52-1.04) Glomerular Filtration Rate Calc > 60.0 Random Glucose 112 mg/dl (75-110) Lactate 2.1 mmol/L (0.7-2.1) Calcium Level 9.6 mg/dl (8.4-10.2) Total Bilirubin 0.3 mg/dl (0.2-1.3) Aspartate Amino Transf (AST/SGOT) 21 U/L (0-35) Alanine Aminotransferase (ALT/SGPT) 30 U/L (0-56) Alkaline Phosphatase 93 U/L (0-126) Troponin I < 0.012 ng/ml B-Type Natriuretic Peptide 16 pg/ml (0-100) Total Protein 7.5 g/dl (6.3-8.2) Albumin 4.2 g/dl (3.5-5.0) Coagulation Test 03/29/19 20:00 D-Dimer Quantitative (PE/DVT) 0.73 ug/ml (0-0.50) Urinalysis Test 03/29/19 20:36 Urine Color Yellow Urine Clarity Clear Urine pH 5.0 pH (4.8-9.5) Urine Specific [place] 1.014 Urine Protein Negative mg/dL (NEGATIVE) Urine Glucose (UA) Negative mg/dL (NEGATIVE) Urine Ketones Negative mg/dL (NEGATIVE) Urine Blood Small (NEGATIVE) Urine Nitrite Negative (NEGATIVE) Urine Bilirubin Negative (NEGATIVE) Urine Urobilinogen Negative mg/dL (0.2-1.9) Urine Leukocyte Esterase Negative (NEGATIVE) Urine RBC 1 /HPF (0-2/HPF) Urine WBC None /HPF (0-5/HPF) Urine Squamous Epithelial Cells None /LPF (</=FEW) Urine Bacteria Negative /HPF (NONE-FEW) Urine Mucus Few /HPF (NONE-FEW) EKG/Imaging EKG Interpretation 12 lead EK Rhythm: normal sinus rhythm Dale: normal QRS: normal ST segments: normal, comparison to previous EKG dated , no significant change Imaging X-ray: Two-view chest x-ray was obtained. I viewed the images myself on the PACS system. My interpretation of the images is: No infiltrate, no effusion, normal mediastinum. The radiologist interpretation had no clinically sign ificant variation from this interpretation. Results: CT scan of the CTA pulmonary angiogram was obtained. The results of the study are EXAMINATION: CTA of the chest with IV contrast HISTORY: Chest tightness. TECHNIQUE: Pulmonary embolus protocol - Thin axial CT images of the chest were obtained with IV contrast during maximal pulmonary arterial opacification. Reconstruction of the source data includes multiplanar 2D coronal and sagittal reconstructed images, and 3D coronal and sagittal MIP images. [employer] images have been stored on PACS. One of the following dose optimization techniques was utilized in the performance of this exam: Automated exposure control; adjustment of the mA and/or kV according to the patient's size; or use of an iterative reconstruct ion technique. Specific details can be referenced in the facility's radiology CT exam operational policy. Contrast: 75 mL of IV Isovue-370. COMPARISON: 02/13/2012. FINDINGS: Pulmonary arteries: The pulmonary arteries are well opacified, without suspicious filling defect. Heart, aorta, and great vessels: Normal caliber thoracic aorta, without aneurysm or dissection. Normal heart size. No pericardial effusion. Lungs and pleura: The lungs are clear. No focal consolidation. No pleural effusion or pneumothorax. The central airways are patent. Mediastinum and kayleen: Negative. Visualized upper abdomen: Unremarkable. Chest wall: Negative. Bones: No acute osseous findings. Scattered degenerative changes along the thoracic spine. IMPRESSION: 1. No evidence of pulmonary embolism. 2. No other acute findings in the chest. The lungs are clear. The study was read by the radiologist. I viewed the images myself on the PACS system. ED Course/Re-evaluation Clinical Indication for ER IV: IV Access ED Course Patient was minute to an examination room. H&P was done. The differential diagnosis was considered. Patient with acute asthma exacerbation clinically. Her d-dimer came back elevated. She was treated with IV Solu-Medrol and serial neurologic treatments. Her breathing is much improved. Her d-dimer was elevated. She was sent for CTA pulmonary angiogram since she's been riding in a car for 1300 miles. She is at risk for PE. The CT angiogram was unremarkable for pulmonary embolism. Patient's reassured and advised to continue on her current medications and follow-up with her primary care physician. Decision to Disposition Date: Mar 29, 2019 Decision to Disposition Time: 21:37 Depart Departure Latest Vital Signs Vital Signs Date Time Temp Pulse Resp B/P (MAP) Pulse Ox O2 Delivery O2 Flow Rate FiO2 03/29/19 22:05 86 20 95 03/29/19 22:00 127/84 (98) 03/29/19 21:52 2.0 03/29/19 20:09 Room Air 03/29/19 19:51 98.0 Impression: Primary Impression: Asthma exacerbation Additional Impression: GERD (gastroesophageal reflux disease) Condition: Improved Disposition: HOME OR SELF-CARE Referrals: MADI LEYVA DO (PCP) Patient Instructions: Asthma (ED) Additional Instructions: Finish remainder of the Medrol Dosepak as prescribed Follow-up with primary care Dr Leyva if unimproved in 3-5 days. Problem Qualifiers Primary Impression: Asthma exacerbation Asthma severity: mild Asthma persistence: intermittent Qualified Codes: J45.21 - Mild intermittent asthma with (acute) exacerbation Additional Impression: GERD (gastroesophageal reflux disease) Esophagitis presence: esophagitis presence not specified Qualified Codes: K21.9 - Gastro-esophageal reflux disease without esophagitis VENTURA JACKSON DO Mar 29, 2019 19:50
[2019-03-29] MEDS ORDERED: PANT40TA65 PO (19:58)
[2019-03-29] MEDS ORDERED: ALBUTEROL/IPRATROPIUM 3 ML NEB NEB ONE (20:00)
[2019-03-29 20:35] LABS: PLATELET COUNT, AUTOMATED 328 K/uL (150-450)
--- NOTE | 2019-03-29 20:49 | RADIOLOGY IMAGING REPORT ---
FACILITY: [facility] - [place], [place] PATIENT NAME: Rocky Pierce : 1955 MR: [id number] V: [id number] EXAM DATE: ORDERING PHYSICIAN: VENTURA JACKSON TECHNOLOGIST: Location: [facility] Patient: Rocky Pierce : 1955 Visit/Account:[id number] Date of Sevice: 03/29/2019 Examination: CHEST PA LAT Comparison: 10/21/2018. History: Chest tightness. Findings: Cardiac and hilar contour size is normal. No consolidation, nodule, or peribronchial inflam mation. No pneumothorax, edema, or effusion. Osseous structures are intact. IMPRESSION: No findings of acute cardiopulmonary disease. Report Dictated By: Pedrito Fong MD at 03/29/2019 8:39 PM Report E-Signed By: Pedrito Fong MD at 03/29/2019 8:41 PM WSN:[id number]
--- NOTE | 2019-03-29 20:54 | EKG ---
FACILITY: [facility] PATIENT NAME: BACILIO DUBON : [id number] MR: [id number] V: [id number] EXAM DATE: ORDERING PHYSICIAN: VENTURA JACKSON TECHNOLOGIST: KHADIJAH Test Reason : CHEST PRESSURE Blood Pressure : / mmHG Vent. Rate : 081 BPM Atrial Rate : 081 BPM P-R Int : 138 ms QRS Dur : 094 ms QT Int : 386 ms P-R-T Axes : 077 062 053 degrees QTc Int : 448 ms Normal sinus rhythm Normal ECG When compared with ECG of 28-JAN-2016 11:17, No significant change was found Confirmed by SCOT WHATLEY ([id number]) on 03/29/2019 9:01:09 PM Referred By: Confirmed By:SCOT WHATLEY
[2019-03-29] MEDS ORDERED: NS(*) 0.9% 50 ML BAG 50 ML ONE (21:12)
[2019-03-29] MEDS ORDERED: IOPAMIDOL 76% 100 ML INFUS BTL 100 ML ONE (21:12)
[2019-03-29 22:00] VITALS: BP 127/84
--- NOTE | 2019-03-29 22:19 | RADIOLOGY IMAGING REPORT ---
[place] [facility] [place] Rocky [place] : 1955 MR: [id number] V: [id number] EXAM DATE: ORDERING PHYSICIAN: VENTURA JACKSON TECHNOLOGIST: Location: [facility] Patient: Rocky Pierce : 1955 Visit/Account:[id number] Date of Sevice: 03/29/2019 EXAMINATION: CTA of the chest with IV contrast HISTORY: Chest tightness. TECHNIQUE: Pulmonary embolus protocol - Thin axial CT images of the chest were obtained with IV con trast during maximal pulmonary arterial opacification. Reconstruction of the source data includes mul tiplanar 2D coronal and sagittal reconstructed images, and 3D coronal and sagittal MIP images. Repres entative images have been stored on PACS. One of the following dose optimization techniques was utilized in the performance of this exam: Autom ated exposure control; adjustment of the mA and/or kV according to the patient's size; or use of an i terative reconstruction technique. Specific details can be referenced in the facility's radiology C T exam operational policy. Contrast: 75 mL of IV Isovue-370. COMPARISON: 02/13/2012. FINDINGS: Pulmonary arteries: The pulmonary arteries are well opacified, without suspicious filling defect. Heart, aorta, and great vessels: Normal caliber thoracic aorta, without aneurysm or dissection. Norm al heart size. No pericardial effusion. Lungs and pleura: The lungs are clear. No focal consolidation. No pleural effusion or pneumothorax. The central airways are patent. Mediastinum and kayleen: Negative. Visualized upper abdomen: Unremarkable. Chest wall: Negative. Bones: No acute osseous findings. Scattered degenerative changes along the thoracic spine. IMPRESSION: 1. No evidence of pulmonary embolism. 2. No other acute findings in the chest. The lungs are clear. Report Dictated By: Yovany Dickson MD at 03/29/2019 9:59 PM Report E-Signed By: Yovany Dickson MD at 03/29/2019 10:11 PM WSN:[id number]
== END 2019-03-29 22:27 | disposition home or self-care (01) ==
LOC: ER 19:52
DX: J45.21 Mild intermittent asthma with (acute) exacerbation (principal); K21.9 Gastro-esophageal reflux disease without esophagitis
CPT/HCPCS: 71046; 71275; 81001; 83605; 83880; 84484; 85025; 85379; 93005; 94640; 99284; J7050; J7620; Q9967; 82040; 82247; 82310; 82374; 82435; 82565; 82947; 84075; 84132; 84155; 84295; 84450; 84460; 84520

== ENCOUNTER → 2019-04-04 | Outpatient (CLI) | payer OTHER ==
[2014-01-16 11:54] VITALS: BMI 23.3
[~2019-04-04] MED LIST changes: +PANT40TA65 PO
== END ==
LOC: LAB 07:56
PROVIDERS: ATTEND Nurse Practitioner Family
DX: K21.9 Gastro-esophageal reflux disease without esophagitis (principal)
CPT/HCPCS: 36415; 82941

== ENCOUNTER 2019-04-17 02:11 | Day surgery (SDC) | payer OTHER ==
[2014-01-16 11:54] VITALS: Ht 170.2 cm; Wt 66.2 kg
[~2019-04-17] VITALS: Ht 170.2 cm; Wt 66.2 kg
[2019-04-17] MEDS ORDERED: PROPOFOL EMUL(*) 10MG/ML 20 ML 40 ML ONE ×2 (07:03→07:05)
[2019-04-17 12:30] VITALS: BP 121/77
[2019-04-17] MEDS ORDERED: LIDOCAINE/SOD BICARB 8.4% SYR ID ONE (12:40)
[2019-04-17] MEDS ORDERED: NORMOSOL R SOLN(*) 1000 ML BAG 1,000 ML IV PRN (12:40)
[2019-04-17 15:15] VITALS: BP 106/61
--- NOTE | 2019-04-17 15:20 | NUR ---
Patient arouses upon calling. keeps attempting to scratch her eye. instructed patient not to scratch her eye. will continue to monitor.
--- NOTE | 2019-04-17 15:25 | NUR ---
patient supplemental oxygen removed. tolerating well. O2 sats at 97%, pulse s 79, respirations even and unlabored at 16/min. will continue to monitor and assess.
--- NOTE | 2019-04-17 15:35 | NUR ---
patient is now awake and very talkative. not showing signs of pain or trouble breathing. will continue to monitor.
[2019-04-17 15:53] VITALS: BP 112/66
[2019-04-17 15:55] VITALS: BP 105/65
--- NOTE | 2019-04-17 15:57 | NUR ---
Orthostatic vitals taken. patient tolerated well. see vitals for report.
--- NOTE | 2019-04-17 16:19 | NUR ---
patient walked out.
== END 2019-04-17 16:15 | disposition home or self-care (01) ==
LOC: OR 02:11
PROVIDERS: ATTEND Internal Medicine Gastroenterology
DX: K20.9 Esophagitis, unspecified (principal); K29.70 Gastritis, unspecified, without bleeding
CPT/HCPCS: 43239; 88305; 88313; 88342; J2704